=== PATIENT | female | born 1990 | race Caucasian/White ===

== ENCOUNTER → 2018-07-12 | Outpatient (CLI) | payer OTHER ==
[2018-07-12 12:34] LABS: BASO % 0.7 % (0.0-1.0); EOS % 0.7 % (0.0-3.0); HEMATOCRIT 42.1 % (36.0-47.0); HEMOGLOBIN 14.1 g/dl (12.0-15.5); LYMPH # 1.7 10^3/uL (1.5-6.5); LYMPH % 30.8 % (24.0-44.0); MEAN CORPUSCULAR HEMOGLOBIN 27.9 pg (27.0-33.0); MEAN CORPUSCULAR HGB CONC 33.5 g/dl (32.0-36.5); MEAN CORPUSCULAR VOLUME 83.2 fl (80.0-96.0); MONO # 0.3 10^3/uL (0.0-0.8); NEUTROPHILS # 3.4 10^3/uL (1.8-7.7); NEUTROPHILS % 61.6 % (36.0-66.0); PLATELET COUNT, AUTOMATED 314 10^3/uL (150-450); RED BLOOD COUNT 5.06 10^6/uL (4.00-5.40); WHITE BLOOD COUNT 5.5 10^3/uL (4.0-10.0)
[2018-07-12 12:48] LABS: ALBUMIN 4.4 GM/DL (3.2-5.2); ALT/SGPT 18 U/L (12-78); BILIRUBIN,TOTAL 0.5 MG/DL (0.2-1.0); BLOOD UREA NITROGEN 17 MG/DL (7-18); CALCIUM LEVEL 9.6 MG/DL (8.5-10.1); CARBON DIOXIDE LEVEL 25 MEQ/L (21-32); CHLORIDE LEVEL 105 MEQ/L (98-107); CREATININE FOR GFR 0.73 MG/DL (0.55-1.30); FREE T4 1.32 NG/DL (0.76-1.46); GLOMERULAR FILTRATION RATE > 60.0 (>60); GLUCOSE, FASTING 89 MG/DL (70-100); POTASSIUM SERUM 4.4 MEQ/L (3.5-5.1); SODIUM LEVEL 138 MEQ/L (136-145)
== END ==
LOC: M WUC 09:21
PROVIDERS: ATTEND Physician Assistant
DX: K04.7 Periapical abscess without sinus (principal)

== ENCOUNTER → 2019-05-05 | Outpatient (CLI) | payer OTHER ==
[2019-05-05 11:33] LABS: BASO % 0.5 % (0.0-1.0); EOS # 0.1 10^3/uL (0.0-0.5); EOS % 1.1 % (0.0-3.0); HEMATOCRIT 41.5 % (36.0-47.0); HEMOGLOBIN 13.3 g/dl (12.0-15.5); LYMPH # 1.6 10^3/uL (1.5-5.0); LYMPH % 29.9 % (24.0-44.0); MEAN CORPUSCULAR HEMOGLOBIN 27.9 pg (27.0-33.0); MONO # 0.4 10^3/uL (0.0-0.8); MONO % 6.9 % (0.0-5.0); NEUTROPHILS # 3.4 10^3/uL (1.5-8.5); NEUTROPHILS % 61.4 % (36.0-66.0); PLATELET COUNT, AUTOMATED 292 10^3/uL (150-450); RED BLOOD COUNT 4.77 10^6/uL (4.00-5.40); WHITE BLOOD COUNT 5.5 10^3/uL (4.0-10.0)
[2019-05-05 12:23] LABS: ALBUMIN 4.2 GM/DL (3.2-5.2); ALT/SGPT 18 U/L (12-78); BILIRUBIN,TOTAL 0.5 MG/DL (0.2-1.0); BLOOD UREA NITROGEN 16 MG/DL (7-18); CALCIUM LEVEL 9.2 MG/DL (8.5-10.1); CARBON DIOXIDE LEVEL 26 MEQ/L (21-32); CHLORIDE LEVEL 105 MEQ/L (98-107); CREATININE FOR GFR 0.72 MG/DL (0.55-1.30); FREE T4 1.19 NG/DL (0.76-1.46); GLOMERULAR FILTRATION RATE > 60.0 (>60); GLUCOSE, FASTING 84 MG/DL (70-100); POTASSIUM SERUM 4.4 MEQ/L (3.5-5.1); SODIUM LEVEL 139 MEQ/L (136-145); TOTAL 25(OH) VITAMIN D 22.3 NG/ML (30.0-100.0); TOTAL PROTEIN 7.8 GM/DL (6.4-8.2)
== END ==
LOC: M LRY 09:04
PROVIDERS: ATTEND Family Medicine
DX: Z13.29 Encounter for screening for other suspected endocrine disorder (principal)

== ENCOUNTER → 2019-05-14 | Outpatient (REF) | payer OTHER | LOC: M LAB REF 17:22 | PROVIDERS: ATTEND Physician Assistant | DX: J02.9 Acute pharyngitis, unspecified (principal) ==

== ENCOUNTER → 2019-08-01 | Outpatient (CLI) | payer OTHER ==
--- NOTE | 2019-08-05 17:15 | REP ---
Clinical: Scoliosis. Comparison: Technique: Two frontal radiographs of the thoracolumbar spine. Findings: Current examination demonstrates approximately 25 degrees dextroconvex scoliosis as measured from the superior endplate of T3 to the superior endplate of T12 along with compensatory levoconvex scoliosis through the lumbar spine of approximately 23 degrees as measured from the superior endplate of T12 to the superior endplate of L4. Findings appear relatively stable to a prior examination dated 10/22/2013. Impression: Scoliosis through the thoracic and lumbar spine similar to prior examination. Electronically Signed by Tyron Hardy MD 08/05/2019 05:06 P
== END ==
LOC: M LRY 10:15
PROVIDERS: ATTEND Physician Assistant
DX: M41.35 Thoracogenic scoliosis, thoracolumbar region (principal)

== ENCOUNTER → 2020-03-15 | Outpatient (CLI) | payer OTHER ==
--- NOTE | 2020-03-15 08:52 | REPVR ---
PROCEDURE INFORMATION: Exam: MR Orbit Without Contrast Exam date and time: 03/15/2020 8:10 AM Age: 29 years old Clinical indication: Visual changes or disturbances; Double vision (diplopia) and other: Blurry vision; Additional info: Dizziness/giddiness, VERGARA, facial pain TECHNIQUE: Imaging protocol: MR Orbit was performed without intravenous contrast. COMPARISON: No relevant prior studies available. FINDINGS: Orbits: Normal. Paranasal sinuses: Unremarkable. No air-fluid levels. Soft tissues: Unremarkable. IMPRESSION: No structural abnormality identified. Electronically signed by: Patsy Tavera On 03/15/2020 08:51:50 AM
--- NOTE | 2020-03-15 08:53 | REPVR ---
PROCEDURE INFORMATION: Exam: MR Head Without Contrast Exam date and time: 03/15/2020 8:10 AM Age: 29 years old Clinical indication: Other: Dizziness/giddiness, VERGARA, facial pain TECHNIQUE: Imaging protocol: MR of the head without contrast. COMPARISON: No relevant prior studies available. FINDINGS: Brain: There is no extra-axial collection or intra-axial mass. Normal parenchymal signal is preserved. There is no diffusion restriction. Cerebral ventricles: Normal. No ventriculomegaly. Bones/joints: Unremarkable. Paranasal sinuses: Normal as visualized. No acute sinusitis. Mastoid air cells: Normal as visualized. No mastoid effusion. Orbits: Unremarkable. Soft tissues: Unremarkable. IMPRESSION: No acute findings. Electronically signed by: Patsy Tavera On 03/15/2020 08:53:22 AM
== END ==
LOC: M RAD 07:01
PROVIDERS: ATTEND Physician Assistant
DX: R42 Dizziness and giddiness (principal)